=== PATIENT | male | born 1980 | race Caucasian/White ===

== ENCOUNTER 2017-02-27 11:06 | Outpatient (CLI) | payer OTHER ==
--- NOTE | 2017-02-27 11:53 | DIAGNOSTIC IMAGING REPORT ---
PROCEDURE: XR CERVICAL SPINE 2 OR 3 VIEW INDICATION: LOW BACK PX CERVICALGIA TECHNIQUE: Three views. COMPARISON: None. FINDINGS: Mild spondylosis C4-5. No evidence of an acute process or fracture. IMPRESSION: 1. Negative cervical spine.
--- NOTE | 2017-02-27 11:55 | DIAGNOSTIC IMAGING REPORT ---
PROCEDURE: XR LUMBAR SPINE 2 OR 3 VIEWS INDICATION: LOW BACK PX TECHNIQUE: Three views. COMPARISON: Lumbar spine films 01/14/2015 FINDINGS: There are mild degenerative changes of the lower lumbar facet joints. structures and disc spaces are otherwise normal. No evidence of an acute process or fracture. IMPRESSION: 1. Mild degenerative changes of the lower lumbar facet joints. 2. Otherwise negative lumbar spine.
== END 2017-02-27 23:00 ==
LOC: XR SRH 11:06
DX: M54.5 Low back pain (principal); M54.2 Cervicalgia